=== PATIENT | male | born 1985 | race Hispanic/Latino ===

== ENCOUNTER 2018-03-14 09:30 | Emergency (ER) | payer OTHER ==
[2018-03-14 09:39] VITALS: TEMP 98.3
[2018-03-14 09:40] VITALS: BMI 25.0
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
--- NOTE | 2018-03-14 11:08 | RAD ---
Date of service: 03/14/2018 PROCEDURE: Cervical Spine Radiographs. HISTORY: Pain. COMPARISON: None. FINDINGS: BONES: Straightening of the normal cervical lordosis may be related to muscle spasm or positioning. Alignment otherwise maintained. No acute displaced fracture identified. Superior most dens tip obscured. DISC SPACES: Unremarkable. SOFT TISSUES: Unremarkable. No prevertebral soft tissue swelling. OTHER FINDINGS: None. IMPRESSION: Straightening of the normal cervical lordosis may be related to muscle spasm or positioning. Superior most dens tip obscured. Otherwise unremarkable study without acute displaced fracture identified.
[2018-03-14 11:19] VITALS: BP 102/65; PULSE 74; RESP 16; O2SAT 96
== END 2018-03-14 11:16 | disposition home or self-care (01) ==
LOC: ED 09:30
DX: S16.1XXA Strain of muscle, fascia and tendon at neck level, initial encounter (principal); V49.9XXA Car occupant (driver) (passenger) injured in unspecified traffic accident, initial encounter
CPT/HCPCS: 70450; 72050; 96372; 99285; J1885